=== PATIENT | female | born 1960 | race Hispanic/Latino ===

== ENCOUNTER 2023-05-24 21:31 | Inpatient (IN) | payer BC ==
[~2023-05-24] VITALS: Ht 152.4 cm; Wt 67.5 kg
[2023-05-24 22:19] LABS: BASOPHILS # (AUTO) 0.05 K/uL (0.00-0.20); BASOPHILS % (AUTO) 0.6 % (0.0-5.0); EOSINOPHILS # (AUTO) 0.06 K/uL (0.00-0.70); EOSINOPHILS % (AUTO) 0.7 % (0.0-8.0); HEMATOCRIT 32.3 % (36-48); IMMATURE GRANULOCYTE ABSOLUTE 0.04 K/uL (0-1); LYMPHOCYTES # (AUTO) 1.6 K/uL (1.0-4.8); LYMPHOCYTES % (AUTO) 19.2 % (21.0-51.0); MEAN CORPUSCULAR HEMOGLOBIN 29.4 pg (27.0-33.0); MEAN CORPUSCULAR VOLUME 83.9 fL (79-99); MONOCYTES # (AUTO) 0.7 K/uL (0.1-1.0); MONOCYTES % (AUTO) 8.2 % (3.0-13.0); NEUTROPHILS % (AUTO) 70.8 % (40.0-77.0); PLATELET COUNT (AUTO) 212 K/uL (130-400); RED BLOOD CELL COUNT(AUTO) 3.85 MIL/uL (4.00-5.50); RED CELL DISTRIBUTION WIDTH 12.5 % (11.0-15.5); WHITE BLOOD COUNT (AUTO) 8.4 K/uL (4.8-10.8)
[2023-05-24 22:44] LABS: BILIRUBIN,TOTAL 0.3 mg/dL (0.2-1.0); POTASSIUM 4.3 mmol/L (3.5-5.1); TOTAL PROTEIN, SERUM 7.3 g/dL (6.0-8.3)
[2023-05-24 23:01] LABS: ALBUMIN 3.8 g/dL (3.5-5.0); CREATININE 1.6 mg/dL (0.5-1.5); MAGNESIUM 1.7 mg/dL (1.80-2.40)
[2023-05-24 23:04] LABS: B-TYPE NATRIURETIC PEPTIDE 6 pg/mL (0-100)
[2023-05-24 23:19] LABS: APPEARANCE,URINE CLEAR (CLEAR); BILIRUBIN,URINE NEGATIVE (NEGATIVE); COLOR,URINE COLORLESS (YELLOW); GLUCOSE, URINE (UA) >=1000 mg/dL (NEGATIVE); KETONES,URINE NEGATIVE (NEGATIVE); LEUKOCYTE ESTERASE ,URINE NEGATIVE Leu/uL (NEGATIVE); MUCUS,URINE RARE LPF (None Seen); NITRATE,URINE NEGATIVE (NEGATIVE); OCCULT BLOOD,URINE NEGATIVE (NEGATIVE); PROTEIN,URINE NEGATIVE (NEGATIVE); RBC,URINE 0-1 /HPF (0-1); SQUAMOUS EPITHELIAL CELL,UR RARE /HPF (0-2); UROBILINOGEN,URINE 0.2 mg/dL (0.2-1.0); WBC,URINE 0-1 /HPF (0-1)
[2023-05-24] MEDS ORDERED: MAGNESIUM 2GM PREMIX 50ML 50 ML IV SCH (23:30)
[2023-05-25] MEDS: 0.9%NACL 1000ML 1,000 ML IV SCH ×2 (00:14→10:20)
[2023-05-25 00:20] VITALS: BP 147/83; PULSE 70; RESP 20; O2SAT 100
[2023-05-25] MEDS ORDERED: ONDANSETRON 4MG INJ IVP PRN ×2 (00:30→02:30)
[2023-05-25] MEDS ORDERED: ACETAMINOPHEN 325 MG TAB PO PRN ×2 (00:30→02:30)
[2023-05-25] MEDS ORDERED: HYDROCODONE/ACETAMINOPHEN 5/325 MG TAB PO PRN (02:30)
[2023-05-25] MEDS ORDERED: LACTULOSE 20 GM/30 ML UDCUP PO PRN (02:30)
[2023-05-25] MEDS ORDERED: LABETALOL 20MG SYG IV PRN (02:30)
[2023-05-25] MEDS ORDERED: HYDRALAZINE 20MG/ML VIAL IV PRN (02:30)
[2023-05-25] MEDS ORDERED: ACETAMINOPHEN 650 MG SUPPOSITORY RC PRN (02:30)
[2023-05-25 03:47] VITALS: BP 129/67; PULSE 56; RESP 18
[2023-05-25 06:01] LABS: CREATININE 1.4 mg/dL (0.5-1.5); POTASSIUM 4.3 mmol/L (3.5-5.1)
[2023-05-25 08:00] VITALS: BP 124/75; PULSE 58; RESP 18; O2SAT 100
[2023-05-25] MEDS ORDERED: ENOXAPARIN SODIUM 30 MG/0.3 ML SQ SCH (09:00)
[2023-05-25] MEDS ORDERED: ASPIRIN 325MG TAB PO SCH (09:00)
[2023-05-25] MEDS ORDERED: PANTOPRAZOLE 40 MG TAB DR PO SCH (09:00)
[2023-05-25 11:34] LABS: CREATININE 1.4 mg/dL (0.5-1.5); POTASSIUM 4.5 mmol/L (3.5-5.1)
[2023-05-25 12:00] VITALS: BP 134/75; PULSE 60; RESP 20
[2023-05-25 16:00] VITALS: BP 133/76; PULSE 62; RESP 20
[2023-05-26] MEDS ORDERED: CEPH500B PO (21:57)
== END 2023-05-25 19:30 | disposition home or self-care (01) | DRG 641 ==
LOC: EDH 21:31 → EDHIP 23:28 → OBSVTOIN 23:28 → 3DH 05-25 00:20
PROVIDERS: ADMIT Internal Medicine; ATTEND Internal Medicine
DX: E86.0 Dehydration (principal); E87.1 Hypo-osmolality and hyponatremia; E78.00 Pure hypercholesterolemia, unspecified; E83.42 Hypomagnesemia; G25.81 Restless legs syndrome; I12.9 Hypertensive chronic kidney disease with stage 1 through stage 4 chronic kidney disease, or unspecified chronic kidney disease; E11.22 Type 2 diabetes mellitus with diabetic chronic kidney disease; N18.2 Chronic kidney disease, stage 2 (mild); T50.995A Adverse effect of other drugs, medicaments and biological substances, initial encounter; Y92.89 Other specified places as the place of occurrence of the external cause
CPT/HCPCS: 36415; 71045; 71250; 74150; 80048; 80053; 80061; 81001; 82550; 82948; 83735; 83874; 83880; 84484; 85025; 93005; G0378; J1650

== ENCOUNTER 2023-05-26 20:12 | Emergency (ER) | payer BC ==
[~2023-05-26] VITALS: Ht 152.4 cm; Wt 63.5 kg
[2023-05-26 20:28] VITALS: O2SAT 97
[2023-05-26 20:29] VITALS: BP 152/74; PULSE 96; RESP 18
[2023-05-26 21:00] LABS: BASOPHILS # (AUTO) 0.04 K/uL (0.00-0.20); BASOPHILS % (AUTO) 0.5 % (0.0-5.0); EOSINOPHILS # (AUTO) 0.08 K/uL (0.00-0.70); HEMATOCRIT 33.9 % (36-48); IMMATURE GRANULOCYTE ABSOLUTE 0.02 K/uL (0-1); LYMPHOCYTES # (AUTO) 2.8 K/uL (1.0-4.8); LYMPHOCYTES % (AUTO) 35.9 % (21.0-51.0); MEAN CORPUSCULAR HEMOGLOBIN 28.7 pg (27.0-33.0); MEAN CORPUSCULAR HGB CONC 33.9 g/dL (32.0-36.0); MEAN CORPUSCULAR VOLUME 84.5 fL (79-99); MONOCYTES # (AUTO) 0.8 K/uL (0.1-1.0); MONOCYTES % (AUTO) 10.8 % (3.0-13.0); NEUTROPHILS % (AUTO) 51.5 % (40.0-77.0); PLATELET COUNT (AUTO) 254 K/uL (130-400); RED BLOOD CELL COUNT(AUTO) 4.01 MIL/uL (4.00-5.50); WHITE BLOOD COUNT (AUTO) 7.7 K/uL (4.8-10.8)
[2023-05-26] MEDS ORDERED: 0.9%NACL 1000ML 1,000 ML IV ONE (21:00)
[2023-05-26 21:01] LABS: APPEARANCE,URINE CLEAR (CLEAR); BILIRUBIN,URINE NEGATIVE (NEGATIVE); COLOR,URINE COLORLESS (YELLOW); GLUCOSE, URINE (UA) 500 mg/dL (NEGATIVE); KETONES,URINE NEGATIVE (NEGATIVE); LEUKOCYTE ESTERASE ,URINE 250 Leu/uL (NEGATIVE); NITRATE,URINE NEGATIVE (NEGATIVE); OCCULT BLOOD,URINE NEGATIVE (NEGATIVE); PH,URINE 5.5 (5.0-8.0); PROTEIN,URINE NEGATIVE (NEGATIVE); UROBILINOGEN,URINE 0.2 mg/dL (0.2-1.0)
[2023-05-26 21:02] LABS: ADD UA MICROSCOPIC YES
[2023-05-26 21:12] LABS: CREATININE 1.6 mg/dL (0.5-1.5); POTASSIUM 4.7 mmol/L (3.5-5.1)
[2023-05-26 21:16] LABS: BACTERIA,URINE RARE /HPF (None Seen); MUCUS,URINE RARE LPF (None Seen)
[2023-05-26 21:19] LABS: BILIRUBIN,TOTAL 0.3 mg/dL (0.2-1.0); TOTAL PROTEIN, SERUM 7.6 g/dL (6.0-8.3)
[2023-05-26 21:22] LABS: RAPID GROUP A STREP negative (NEGATIVE)
[2023-05-26 21:23] LABS: SARS-CoV-2, RNA, NAAT NEGATIVE SARS CoV-2 (NEGATIVE)
[2023-05-26 21:32] LABS: INFLUENZA TYPE A Negative For Type A (NEGATIVE); INFLUENZA TYPE B Negative For Type B (NEGATIVE)
[2023-05-26] MEDS ORDERED: CEPH500B PO (21:57)
[2023-05-26] MEDS ORDERED: CEFTRIAXONE 1G VIAL IVPB ONE (22:00)
== END 2023-05-26 22:42 | disposition home or self-care (01) ==
LOC: EDH 20:12
DX: N39.0 Urinary tract infection, site not specified (principal); I10 Essential (primary) hypertension; E11.9 Type 2 diabetes mellitus without complications; E78.00 Pure hypercholesterolemia, unspecified; Z20.822 Contact with and (suspected) exposure to COVID-19
CPT/HCPCS: 99284; 96360; 71045; 87635; 84484; 80053; 85025; 87088; 87880; 87804 ×2; 83605; 81001; 36415; 93005; C9803; J7030; J0696

== ENCOUNTER 2025-03-11 08:37 | Emergency (ER) | payer OTHER ==
[~2025-03-11] VITALS: Ht 152.4 cm; Wt 74.8 kg
[~2025-03-11 08:37] MED LIST: ALPR0.5T8 PO; CEPH500B PO; EMPA10TA PO; LINA145C PO; LOSA100T59 PO; PANT40TA54 PO; ROPI3TAB21 PO
--- NOTE | 2025-03-11 09:15 | NUR ---
pt states she has had flu like symptoms including chills, congestion, vomiting and diarrhea since sunday. chest pain had began on sunday with pain radiation to the left arm and vocalizes a pain level of 8/10.
[2025-03-11 09:30] LABS: BASOPHILS # (AUTO) 0.04 K/uL (0.00-0.20); BASOPHILS % (AUTO) 0.8 % (0.0-5.0); EOSINOPHILS # (AUTO) 0.03 K/uL (0.00-0.70); EOSINOPHILS % (AUTO) 0.6 % (0.0-8.0); HEMATOCRIT 34.1 % (36-48); IMMATURE GRANULOCYTE ABSOLUTE 0.01 K/uL (0-1); LYMPHOCYTES # (AUTO) 1.1 K/uL (1.0-4.8); LYMPHOCYTES % (AUTO) 22.1 % (21.0-51.0); MEAN CORPUSCULAR HEMOGLOBIN 29.8 pg (27.0-33.0); MEAN CORPUSCULAR HGB CONC 33.1 g/dL (32.0-36.0); MONOCYTES # (AUTO) 0.6 K/uL (0.1-1.0); MONOCYTES % (AUTO) 11.6 % (3.0-13.0); NEUTROPHILS # (AUTO) 3.3 K/uL (1.8-7.7); NEUTROPHILS % (AUTO) 64.7 % (40.0-77.0); PLATELET COUNT (AUTO) 206 K/uL (130-400); RED BLOOD CELL COUNT(AUTO) 3.79 MIL/uL (4.00-5.50); RED CELL DISTRIBUTION WIDTH 12.2 % (11.0-15.5)
[2025-03-11 09:32] LABS: ADD UA MICROSCOPIC YES; APPEARANCE,URINE CLEAR (CLEAR); BILIRUBIN,URINE NEGATIVE (NEGATIVE); COLOR,URINE COLORLESS (YELLOW); GLUCOSE, URINE (UA) NEGATIVE (NEGATIVE); KETONES,URINE NEGATIVE (NEGATIVE); LEUKOCYTE ESTERASE ,URINE NEGATIVE Leu/uL (NEGATIVE); NITRATE,URINE NEGATIVE (NEGATIVE); PH,URINE 5.5 (5.0-8.0); PROTEIN,URINE NEGATIVE (NEGATIVE); UROBILINOGEN,URINE 0.2 mg/dL (0.2-1.0)
[2025-03-11 09:34] LABS: MUCUS,URINE RARE LPF (None Seen); SQUAMOUS EPITHELIAL CELL,UR RARE /HPF (0-2)
[2025-03-11 09:35] LABS: CREATININE 1.3 mg/dL (0.5-1.0); POTASSIUM 4.7 mmol/L (3.5-5.1)
[2025-03-11 09:45] LABS: RAPID GROUP A STREP negative (NEGATIVE)
--- NOTE | 2025-03-11 09:47 | HMCIMG ---
CHEST 1VW HISTORY: Chest pain COMPARISON: 09/17/2024 FINDINGS: A frontal projection of the chest was obtained. No acute pulmonary infiltrates is seen. The heart is normal in size. Degenerative changes are seen. No evidence of aortic calcification is seen. IMPRESSION: 1. No acute pulmonary infiltrate is seen.
[2025-03-11 09:55] LABS: COVID19 (SARS ANTIGEN RAPID) PRESUMPTIVE NEGATIVE (NEGATIVE); INFLUENZA TYPE A Negative For Type A (NEGATIVE); INFLUENZA TYPE B Negative For Type B (NEGATIVE)
--- NOTE | 2025-03-11 10:22 | ERN ---
General Chief Complaint: Chest Pain Stated Complaint: CP Time Seen by MD: 08:59 Source: patient History of Present Illness Initial Comments PATIENT IS A 64-YEAR-OLD FEMALE COMING IN TO BE EVALUATED FOR GENERALIZED BODY WEAKNESS DIARRHEA AND CHEST PRESSURE. PATIENT STATES THAT THE CHEST PRESSURE AND MORE HIS BODY ACHE IN ANYTHING. SHE STATES THAT SHE ATE SOME PORK COUPLE OF DAYS AGO SINCE THEN SHE HAD MILD DIARRHEA AND BODY ACHES. Allergies: Coded Allergies: No Known Allergies (Unverified Allergy, Unknown, 05/24/23) Home Meds Active Scripts Cephalexin Monohydrate (Keflex) 500 Mg Cap, 1000 MG PO BID for 7 Days, #28 CAP Prov:LISA MULTANI Rosanne COAL GASIFICATION TECHNICIAN 05/26/23 Reported Medications Linaclotide (Linzess) 145 Mcg Capsule, 1 CAP PO DAILY for 30 Days, #30 CAP 0 Refills 09/19/24 Pantoprazole Sodium (Pantoprazole Sodium) 40 Mg Tablet.dr, 1 TAB PO DAILY 09/19/24 Ropinirole HCl (Ropinirole HCl) 3 Mg Tablet, 1 TAB PO HS 09/18/24 Empagliflozin (Jardiance) 10 Mg Tablet, 1 TAB PO DAILY 09/18/24 Losartan Potassium (Losartan Potassium) 100 Mg Tablet, 1 TAB PO DAILY 09/18/24 Alprazolam (Alprazolam) 0.5 Mg Tablet, 1 TAB PO BID 09/18/24 Past Medical History Past Medical History: Anxiety, Diabetes-Type II, GERD, High Cholesterol, Hypertension Past Surgical History: Female( History) History: Not Applicable ROS Dictation CONSTITUTIONAL: NO CHILLS, NO FEVER, NO WEAKNESS, NO DIAPHORESIS, NO MALAISE. HEAD/FACE: NO SIGNS OF TRAUMA. EENT: NO EYE PAIN, NO BLURRED VISION, NO TEARING, NO DOUBLE VISION, NO EAR PAIN, NO EAR DISCHARGE, NO NOSE PAIN, NO NASAL CONGESTION, NO THROAT PAIN, NO THROAT SWELLING, NO MOUTH PAIN. RESPIRATORY: NO COUGH, NO ORTHOPNEA, NO SOB, NO STRIDOR, NO WHEEZING. CARDIOVASCULAR: NO CHEST PAIN, NO EDEMA, NO PALPITATIONS, NO SYNCOPE. GASTROINTESTINAL/ABDOMINAL: NO ABDOMINAL PAIN, NO CONSTIPATION, NO DIARRHEA, NO NAUSEA, NO VOMITING. GENITOURINARY: NO ABNORMAL DISCHARGE, NO DYSURIA, NO FREQUENT URINATION, NO HEMATURIA. NO COMPLAINTS OF PAIN IN THE GENITALS. MUSCULOSKELETAL: NO BACK PAIN, NO GOUT, NO JOINT PAIN, NO JOINT SWELLING, NO MUSCLE PAIN, NO MUSCLE STIFFNESS, NO NECK PAIN. INTEGUMENTARY: NO CHANGE IN COLOR, NO CHANGE IN HAIR/NAILS, NO DRYNESS, NO LESION, NO LUMPS, NO RASH. NEUROLOGICAL/PSYCH: NO ANXIETY, NOT DEPRESSED, NO EMOTIONAL PROBLEM, NO HEADACHE, NO NUMBNESS, NO PRE-EXISTING DEFICIT, NO HISTORY OF SEIZURES, NO TREMORS, NO WEAKNESS. HEMATOLOGIC/LYMPHATIC: NOT ANEMIC, NO HISTORY OF BLOOD CLOTS, NO APPARENT BLEEDING, NO BRUISING, GLANDS NOT SWOLLEN. ALL SYSTEMS NEGATIVE, EXCEPT NOTED. Physical Exam Physical Exam Dictation VITAL SIGNS: REVIEWED. GENERAL APPEARANCE: ALERT, ORIENTED X3, NO ACUTE DISTRESS, OBESE. HEAD AND FACE: NON-TRAUMATIC. EYES: PERRL, PINK CONJUNCTIVAS, EYELID NO TRAUMA, ANTERIOR CHAMBER CLEAR. EARS: PINNAS INTACT AND NO SIGNS OF TRAUMA OR ERYTHEMA. EAR CANALS CLEAR AND NO DISCHARGE. TMS NO ERYTHEMA. NOSE: NO DISCHARGE, NO BLEEDING. OROPHARYNX: MOUTH NORMAL, TEETH NO CARIES, TONGUE PINK. PHARYNX CLEAR, NO ERYTHEMA. TONSILS NO EXUDATES, NO ABSCESSES NOTED. MUCOUS MEMBRANE MOIST. NECK: SUPPLE, NON-TENDER, NO THYROMEGALY, NO MASSES, NO JVD, NO BRUITS. BREAST: DEFERRED. CHEST: NO TENDERNESS, NO CREPITUS, NO PARADOXICAL MOVEMENT, NO RETRACTIONS. LUNGS: CLEAR, WELL-VENTILATED, SYMMETRIC, NO RALES, NO WHEEZING, NO RHONCHI, NO STRIDOR, GOOD BREATH SOUNDS BILATERALLY. HEART: REGULAR RATE, REGULAR RHYTHM, NO MURMUR, NO GALLOPS. VASCULAR: NO PERIPHERAL EDEMA. ABDOMEN: SOFT, POSITIVE BOWEL SOUNDS, NONDISTENDED, NO GUARDING, NONTENDER, NO REBOUND, NO MASSES NO HEPATOMEGALY, NO SPLENOMEGALY, NO HOPPER'S SIGN, NO HERNIAS. RECTAL: DEFERRED. GENITAL: DEFERRED. NEUROLOGICAL: NORMAL SPEECH, GROSS MOTOR FUNCTION INTACT, GROSS SENSORY FUNCTION INTACT. MUSCULOSKELETAL: NECK NONTENDER, FULL RANGE OF MOTION, BACK NONTENDER, FULL RANGE OF MOTION. EXTREMITIES: NONTENDER, FULL RANGE OF MOTION. SKIN: COLOR PINK, DRY, NO TURGOR, NO RASH, NO LACERATIONS, NO ABRASIONS, NO CONTUSIONS. LYMPHATICS: DEFERRED. Results Laboratory and Microbiology Lab and Micro Result Laboratory Tests Test 03/11/25 09:02 03/11/25 09:36 03/11/25 10:12 White Blood Count 5.0 K/uL (4.8-10.8) Red Blood Count 3.79 MIL/uL (4.00-5.50) L Hemoglobin 11.3 g/dL (12.0-16.0) L Hematocrit 34.1 % (36-48) L Mean Corpuscular Volume 90.0 fL (79-99) Mean Corpuscular Hemoglobin 29.8 pg (27.0-33.0) Mean Corpuscular Hemoglobin Concent 33.1 g/dL (32.0-36.0) Red Cell Distribution Width 12.2 % (11.0-15.5) Platelet Count 206 K/uL (130-400) Mean Platelet Volume 10.6 fL (7.5-10.5) H Immature Granulocyte % (Auto) 0.2 % (0-1) Neutrophils (%) (Auto) 64.7 % (40.0-77.0) Lymphocytes (%) (Auto) 22.1 % (21.0-51.0) Monocytes (%) (Auto) 11.6 % (3.0-13.0) Eosinophils (%) (Auto) 0.6 % (0.0-8.0) Basophils (%) (Auto) 0.8 % (0.0-5.0) Neutrophils # (Auto) 3.3 K/uL (1.8-7.7) Lymphocytes # (Auto) 1.1 K/uL (1.0-4.8) Monocytes # (Auto) 0.6 K/uL (0.1-1.0) Eosinophils # (Auto) 0.03 K/uL (0.00-0.70) Basophils # (Auto) 0.04 K/uL (0.00-0.20) Absolute Immature Granulocyte (auto 0.01 K/uL (0-1) Nucleated Red Blood Cells 0.0 % (0.0-0.19) Urine Color COLORLESS (YELLOW) Urine Appearance CLEAR (CLEAR) Urine pH 5.5 (5.0-8.0) Urine Specific [place] 1.012 (1.001-1.031) Urine Protein NEGATIVE mg/dL (NEGATIVE) Urine Glucose (UA) NEGATIVE mg/dL (NEGATIVE) Urine Ketones NEGATIVE mg/dL (NEGATIVE) Urine Occult Blood +- (TRACE) (NEGATIVE) H Urine Nitrate NEGATIVE (NEGATIVE) Urine Bilirubin NEGATIVE mg/dL (NEGATIVE) Urine Urobilinogen 0.2 mg/dL (0.2-1.0) Urine Leukocyte Esterase NEGATIVE Elvira/uL Urine RBC 2-5 /HPF (0-1) H Urine WBC 2-5 /HPF (0-1) H Urine Squamous Epithelial Cells RARE /HPF (0-2) Urine Bacteria None /HPF (None Seen) Sodium Level 138 mmol/L (136-145) Potassium Level 4.7 mmol/L (3.5-5.1) Chloride Level 102 mmol/L (101-111) Carbon Dioxide Level 28 mmol/L (21-32) Blood Urea Nitrogen 31 mg/dL (7-18) H Creatinine 1.3 mg/dL (0.5-1.0) H Glomerular Filtration Rate Calc 46 mL/min (>90) Random Glucose 169 mg/dL (70-105) H Total Calcium 9.6 mg/dL (8.5-10.1) Troponin I High Sensitivity 7 ng/L (4-50) 7 ng/L (4-50) Influenza Type A Antigen Negative For Type A Influenza Type B Antigen Negative For Type B SARS-CoV-2 Antigen (Rapid) PRESUMPTIVE NEGATIVE Group A Streptococcus Rapid negative (NEGATIVE) Lactic Acid Level 1.4 mmol/L (0.8-2.5) Labs Reviewed?: Yes EKG/XRAY/US/CT/MRI EKG Comment 03/11/2025 TIME 8:48 A.M.\\ VENTRICULAR RATE 96 SINUS RHYTHM NC [address] WAVE ELEVATION OR DEPRESSION X-RAY Comment [facility] [address] [place] [address] IMAGING REPORT Signed PATIENT: TEQUILA ENCISO MR#: [id number] : 1960 SEX: F AGE: 64 LOCATION: [facility] ORDER 0 STATUS: REG ER REPORT#: [id number] SERVICE 9 REASON: CHEST PAIN ORDERING PHYSICIAN: FLAKITO MENCHACA MD PROCEDURE: CXR1VW - CHEST 1VW CHEST 1VW HISTORY: Chest pain COMPARISON: 09/17/2024 FINDINGS: A frontal projection of the chest was obtained. No acute pulmonary infiltrates is seen. The heart is normal in size. Degenerative changes are seen. No evidence of aortic calcification is seen. IMPRESSION: 1. No acute pulmonary infiltrate is seen. DICTATED BY: ZAC RODRIGEZ MD DATE: 03/11/25941 ELECTRONICALLY SIGNED BY: ZAC RODRIGEZ MD DATE: 03/11/25946 [facility] MDM: DIFFERENTIAL DIAGNOSIS: Gastroenteritis, gastritis, RATIONALE: TESTS CONSIDERED AND ORDERED SECONDARY TO SHARED DECISION MAKING INCLUDE: PREVIOUS OUTSIDE RECORDS REVIEWED: OLD ER VISITS. RISK OF COMPLICATION AND/OR MORBIDITY OR MORTALITY OF PATIENT MANAGEMENT: NONE Patient is a a 64-year-old female coming in complaining of diarrhea and body aches. Along with this he has she states that she has had mild discomfort in her chest that has a couple of days. Laboratory workup within normal limits. Patient states that more than anything she has body aches which have improved with IV hydration I did advise her diet modification order to help with the symptoms of diarrhea. Also advised her appropriate follow up with PCP in 1-2 days for ongoing management. Patient will be discharged with out chest pain. ED Course Orders Procedure Category Date Status Time Vital Signs Per CPOE 03/11/25 Transmitted Routine 09:10 Chest 1vw RAD 03/11/25 Resulted 09:10 12 Lead Ekg Tracing- EKG 03/11/25 Logged Technical 09:10 Oxygen By Nc/Pulse Ox CPOE 03/11/25 Transmitted 09:10 Maintain Iv CPOE 03/11/25 Transmitted 09:10 Iv Insertion CPOE 03/11/25 Transmitted 09:10 Cardiac Monitoring CPOE 03/11/25 Transmitted 09:10 Pulse Oximetry With CPOE 03/11/25 Transmitted Vs And Prn 09:10 Cbc With Differential LAB 03/11/25 Complete 09:10 Activity: Br W/Brp CPOE 03/11/25 Transmitted With Assist 09:10 Troponin I High LAB 03/11/25 Complete Sensitivity 09:10 Urinalysis Profile LAB 03/11/25 Complete 09:10 Basic Metabolic Panel LAB 03/11/25 Complete 09:10 Influenza Type A & B, LAB 03/11/25 Complete Rapid 09:26 Rapid (Group A Strep) LAB 03/11/25 Complete 09:26 Covid19 (Sars Antigen LAB 03/11/25 Complete Rapid) 09:26 Lactic Acid LAB 03/11/25 Complete 09:28 Troponin I High LAB 03/11/25 Complete Sensitivity 10:09 Ondansetron 4mg Inj PHA 03/11/25 Complete (Zofran 4mg Inj) 10:30 Lidocaine Hcl 2% PHA 03/11/25 Complete Viscous (Lidocaine Hcl 10:30 Mag/Alum/Simeth 30ml PHA 03/11/25 Complete (Maalox Plus 30ml) 10:30 Pantoprazole 40mg Inj PHA 03/11/25 Complete (Protonix 40mg Inj 10:30 0.9%Nacl 1000ml (Ns PHA 03/11/25 Complete 1000ml) 11:00 Current Medications Medications (Trade) Dose Ordered Sig/Hyacinth Route PRN Reason Start Time Stop Time Status Last Admin Dose Admin Al Hydroxide/Mg Hydroxide (MAALox PLUS 30ML) 30 ml ONCE ONCE PO 03/11/25 10:30 03/11/25 10:31 DC 03/11/25 10:36 Lidocaine HCl (Lidocaine HCl 2% Viscous) 10 ml ONCE ONCE PO 03/11/25 10:30 03/11/25 10:31 DC 03/11/25 10:36 Ondansetron HCl (zoFRAN 4MG INJ) 4 mg ONCE ONCE IVP 03/11/25 10:30 03/11/25 10:31 DC 03/11/25 10:34 Pantoprazole Sodium (PROTonix 40MG INJ) 40 mg ONCE ONCE IVP 03/11/25 10:30 03/11/25 10:31 DC 03/11/25 10:34 Sodium Chloride 1,000 ml @ 0 mls/hr ONCE ONCE IV 03/11/25 11:00 03/11/25 11:05 DC Vital Signs Date Time Temp Pulse Resp B/P (MAP) Pulse Ox O2 Delivery O2 Flow Rate FiO2 03/11/25 10:11 98.1 96 20 153/72 100 Room Air* 0 03/11/25 09:19 98.8 93 18 150/79 100 Room Air* 0 03/11/25 09:13 97.9 92 18 143/87 100 Room Air 0 DX & DISP Disposition: Discharge Departure Impression: Primary Impression: Viral gastroenteritis Condition: Stable Additional Instructions: You have been reviewed in the emergency department at [facility] after presenting with chest pain. After considering your history, your risk factors, your EKG and your blood test troponins, have been found to be at very low risk less than (1 in 100) of having a major adverse cardiac event (like heart attack) in the near future. In the " low risk" group, the risks of doing further tests and treatment as the inpatient outweighs the benefits. In many patients in the low risk group for the test of any sort or unnecessary, however he should discuss this further with his general practitioner who will understand the medical and personal backgrounds better. Because we have never declared you" no risk" we would suggest. 1 returning for medical review if you have further episodes of chest pain/arm pain or other concerning symptoms like dizziness, collapse, palpitations or shortness of breath. 2. Following up with your local doctor who will consider the need for further testing and will also ensure that any modifiable risk factors you may have for heart disease are optimally managed. Patient will be discharged in stable condition at the moment discharge patient states , no chest pain Referrals: RON LANCASTER (PCP) DEVIN RAYA MD Time of Disposition: 11:08 FLAKITO MENCHACA MD March 11, 2025 10:22
[2025-03-11] MEDS: ondanSETRON 4MG INJ IVP ONE (10:34)
[2025-03-11] MEDS: PANTOPrazole 40 MG/VIAL IVP ONE (10:34)
[2025-03-11] MEDS: LIDOCAINE HCL 2% VISCOUS 15 ML UDCUP PO ONE (10:36)
[2025-03-11] MEDS: MAG/ALUM/SIMETH 30 ML UDCUP PO ONE (10:36)
[2025-03-11] MEDS: 0.9%NACL 1000ML 1,000 ML IV ONE (11:48)
[2025-03-11] MEDS: acetaMINOPHEN 325 MG TAB PO ONE (11:49)
[2025-03-11 12:48] VITALS: BP 130/87; PULSE 68; RESP 18; TEMP 98.6; O2SAT 98
--- NOTE | 2025-03-11 19:17 | EKG ---
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
== END 2025-03-11 12:49 | disposition home or self-care (01) ==
LOC: EDH 08:37
DX: A08.4 Viral intestinal infection, unspecified (principal); E11.9 Type 2 diabetes mellitus without complications; E78.00 Pure hypercholesterolemia, unspecified; F41.9 Anxiety disorder, unspecified; I10 Essential (primary) hypertension; Z79.84 Long term (current) use of oral hypoglycemic drugs; Z79.899 Other long term (current) drug therapy; Z20.822 Contact with and (suspected) exposure to COVID-19
CPT/HCPCS: 99284; 96374; 71045; 96361; 96375; 87426; 84484 ×2; 80048; 85025; 87880; 87804 ×2; 83605; 81001; 36415; 93005; J7030; J2405; J2470; 99285